=== PATIENT | female | born 1995 | race Asian ===

== ENCOUNTER 2017-06-30 00:12 | Emergency (ER) | payer SELFPAY ==
[~2017-06-30] VITALS: Ht 162.6 cm; Wt 62.3 kg
[2017-06-30 00:18] VITALS: TEMP 98.7
[2017-06-30 00:53] LABS: BASO # 0.1 (0.0-0.2); BASO % 0.7 % (0.0-2.0); EOS # 0.1 (0.0-0.7); EOS % 1.3 % (0-4.0); GRAN # 5.5 (1.4-6.5); GRAN % 61.3 % (42.2-75.2); HEMATOCRIT 41.3 % (35.0-45.0); HEMOGLOBIN 14.2 g/dl (12.0-15.0); LYMPH # 2.6 (1.2-3.4); LYMPH % 29.4 % (20.0-51.0); MEAN CELL VOLUME 84 fl (80.0-95.0); MEAN CORPUSCULAR HEMOGLOBIN 29 pg (26.0-32.0); MEAN CORPUSCULAR HGB CONC 34 g/dl (33.0-37.0); MEAN PLATELET VOLUME 11.2 fl (7.4-10.4); MONO # 0.6 (0.1-0.6); MONO % 7.1 % (1.7-9.3); PLATELET COUNT 195 K/mm3 (130-400); RED BLOOD COUNT 4.92 M/mm3 (4.10-5.30); REDCELL DISTRIBUTION WIDTH-CV 12.8 % (11.5-14.5)
[2017-06-30 00:54] VITALS: BP 116/75
[2017-06-30 00:59] LABS: COLLECTION METHOD CLEAN CATCH
[2017-06-30 01:02] LABS: ALBUMIN 4.4 gm/dL (3.5-5.0); CALCIUM 9.7 mg/dL (8.4-10.2); CREATININE, serum 0.7 mg/dL (0.52-1.25); POTASSIUM 3.1 mmol/L (3.4-5.0); TOTAL PROTEIN 8.1 gm/dL (6.4-8.2)
[2017-06-30 01:06] LABS: MUCOUS Present /lpf; PH 5 (5-8); URINE APPEARANCE Hazy; URINE BACTERIA None Seen /hpf; URINE BILIRUBIN Negative (NEGATIVE); URINE BLOOD Negative (NEGATIVE); URINE COLOR Yellow; URINE GLUCOSE Negative (NEGATIVE); URINE KETONE Negative (NEGATIVE); URINE LEUKOCYTE ESTERASE Trace (NEGATIVE); URINE NITRATE Negative (NEGATIVE); URINE PROTEIN(semi-quant) Negative (NEGATIVE); URINE RBC 0-2 /hpf; URINE UROBILINOGEN Negative (NEGATIVE)
[2017-06-30] MEDS ORDERED: ATIVAN 1MG T1 MG/TAB PO (01:30)
[2017-06-30 01:45] VITALS: PULSE 75
== END 2017-06-30 01:44 | disposition home or self-care (01) ==
LOC: COL.ER 00:12
PROVIDERS: Emergency Medicine
DX: F41.9 Anxiety disorder, unspecified (principal); E87.6 Hypokalemia; Z98.890 Other specified postprocedural states; Z90.89 Acquired absence of other organs
CPT/HCPCS: Q9967